=== PATIENT | female | born 1950 | race Caucasian/White ===

== ENCOUNTER 2021-07-26 13:42 | Outpatient (CLI) | payer MEDICARE, BC ==
[~2021-07-26 13:42] MED LIST: CYCL-1 PO
== END 2021-07-26 23:59 | disposition home or self-care (01) ==
LOC: CARD DIAG 13:42
PROVIDERS: ATTEND Nurse Practitioner
DX: I08.0 Rheumatic disorders of both mitral and aortic valves (principal); I10 Essential (primary) hypertension
CPT/HCPCS: 93306

== ENCOUNTER 2021-08-23 09:21 | Emergency (ER) | payer MEDICARE, BC ==
[~2021-08-23] VITALS: Ht 162.6 cm; Wt 70.5 kg
[2021-08-23 10:17] LABS: EOSINOPHILS # (AUTO) 0.6 X10'3 (0-0.9); EOSINOPHILS % (AUTO) 5.4 % (0-6); RED BLOOD COUNT 3.67 X10'6 (4.20-5.60); RED CELL DISTRIBUTION WIDTH 17.3 % (11.5-14.5)
[2021-08-23 10:18] LABS: BASOPHILS # (AUTO) 0.2 X10'3 (0-0.2); BASOPHILS % (AUTO) 1.4 % (0-1); HEMATOCRIT 22.6 % (35.0-45.0); LYMPHOCYTES # (AUTO) 2.6 X10'3 (1.1-4.8); LYMPHOCYTES % (AUTO) 21.8 % (21-51); MEAN CORPUSCULAR HEMOGLOBIN 18.4 PG (27.0-31.0); MEAN CORPUSCULAR VOLUME 61.4 FL (78-98); MEAN PLATELET VOLUME 6.5 FL (7.4-10.4); MONOCYTES # (AUTO) 0.8 X10'3 (0-0.9); MONOCYTES % (AUTO) 6.6 % (2-12); NEUTROPHILS # (AUTO) 7.8 X10'3 (1.8-7.7); NEUTROPHILS % (AUTO) 64.8 % (42-75); PLATELET COUNT 645 X10'3 (140-440)
[2021-08-23] MEDS ORDERED: proCHLORperazine 10 MG/2 ml inj IV ONE (10:20)
[2021-08-23] MEDS ORDERED: pantoprazole IV 80 MG in normal saline 100ml IV soln 100 ML IV ONE (10:20)
[2021-08-23] MEDS ORDERED: acetaminophen 325mg tablet PO ONE (10:20)
[2021-08-23 10:22] LABS: HEMOGLOBIN 6.8 g/dl (12.0-16.0)
[2021-08-23 10:44] LABS: ALANINE AMINOTRANSFERASE 18 U/L (12-78); ALBUMIN 3.3 G/DL (3.4-5.0); ALBUMIN/GLOBULIN RATIO 0.9 (1.1-1.5); ALKALINE PHOSPHATASE 74 IU/L (46-116); ANION GAP 8 (8-16); ASPARTATE AMINO TRANSFERASE 24 U/L (10-37); BILIRUBIN,TOTAL 0.3 MG/DL (0.1-1.0); BLOOD UREA NITROGEN 14 MG/DL (7-18); CALCIUM 8.9 MG/DL (8.5-10.1); CHLORIDE 102 MMOL/L (99-107); CREATININE 1.17 MG/DL (0.40-0.90); GLUCOSE 86 MG/DL (70-104); POTASSIUM 4.3 MMOL/L (3.5-5.1); SODIUM 134 MMOL/L (135-145); TOTAL CARBON DIOXIDE 23.6 MMOL/L (24-32); TOTAL PROTEIN 7.1 G/DL (6.4-8.2); eGFR 46 ML/MIN
[2021-08-23] MEDS: pantoprazole 40MG/NS 100ML BAG 100 ML IV SCH ×2 (10:49→11:08)
[2021-08-23 10:57] LABS: ANISOCYTOSIS 1+; HYPOCHROMASIA 2+; MICROCYTOSIS 2+; PLATELET ESTIMATE INCREASED
[2021-08-23 10:58] LABS: STOMATOCYTES 1+
[2021-08-23 10:59] LABS: SCHISTOCYTES FEW
[2021-08-23 12:31] VITALS: BP 178/72
[2021-08-23 12:46] VITALS: BP 154/66
[2021-08-23 12:53] VITALS: BP 154/66
[2021-08-23 13:29] VITALS: BP 166/78
[2021-08-23 14:48] VITALS: BP 175/85
== END 2021-08-23 14:51 | disposition home or self-care (01) ==
LOC: ER 09:21
DX: D50.9 Iron deficiency anemia, unspecified (principal); G43.909 Migraine, unspecified, not intractable, without status migrainosus; R53.83 Other fatigue; I10 Essential (primary) hypertension; G89.29 Other chronic pain; Z90.89 Acquired absence of other organs; Z90.710 Acquired absence of both cervix and uterus; Z98.890 Other specified postprocedural states; Z88.5 Allergy status to narcotic agent; Z88.8 Allergy status to other drugs, medicaments and biological substances; Z79.899 Other long term (current) drug therapy
CPT/HCPCS: 36415; 36430; 71045; 80053; 85008; 85025; 86885; 86900; 86901; 86920; 93005; 96374; 96375; 99285; C9113; J0780; P9016; 96376

== ENCOUNTER 2022-05-30 11:40 | Emergency (ER) | payer MEDICARE, BC ==
[~2022-05-30] VITALS: Ht 162.6 cm; Wt 61.4 kg
[2022-05-30 12:20] VITALS: BP 159/93
[2022-05-30] MEDS ORDERED: morphine 4 MG/ML inj SYRINge IM ONE (17:35)
[2022-05-30] MEDS ORDERED: HYDR-3965 PO (17:52)
[2022-05-30] MEDS ORDERED: HYDROcodone/acetaminophen 5mg/325mg tablet PO ONE (17:55)
== END 2022-05-30 18:29 | disposition home or self-care (01) ==
LOC: ER 11:40
DX: M43.16 Spondylolisthesis, lumbar region (principal); M54.50 Low back pain, unspecified; I10 Essential (primary) hypertension; G89.29 Other chronic pain; Z88.4 Allergy status to anesthetic agent; Z88.5 Allergy status to narcotic agent; Z98.890 Other specified postprocedural states; Z90.710 Acquired absence of both cervix and uterus
CPT/HCPCS: 72110; 73620; 96372; 99284; J2270

== ENCOUNTER 2022-11-04 09:34 | Emergency (ER) | payer BC, MEDICARE, OTHER ==
[~2022-11-04] VITALS: Ht 162.6 cm; Wt 61.4 kg
[2022-11-04] MEDS ORDERED: orphenadrine citrate 60mg/2ml inj. IM ONE (10:40)
[2022-11-04] MEDS ORDERED: HYDROcodone/acetaminophen 5mg/325mg tablet PO ONE ×2 (10:40→12:00)
[2022-11-04 12:02] VITALS: BP 189/93
[2022-11-04] MEDS ORDERED: ORPH100T2 PO (12:19)
[2022-11-04] MEDS ORDERED: HYDR-3965 PO (12:19)
[2022-11-04] MEDS ORDERED: LISI20TA28 PO (12:35)
--- NOTE | 2022-11-04 12:38 | NUR ---
Pt states that she has not been on her blood pressure medication for 2 years since her previous primary medical provider retired. Pt encouraged to establish with a new primary care provider.
== END 2022-11-04 12:56 | disposition home or self-care (01) ==
LOC: ER 09:34
DX: G89.29 Other chronic pain (principal); M54.31 Sciatica, right side; I10 Essential (primary) hypertension; M54.59 Other low back pain; Z90.49 Acquired absence of other specified parts of digestive tract; Z88.5 Allergy status to narcotic agent; Z79.899 Other long term (current) drug therapy; Z79.1 Long term (current) use of non-steroidal anti-inflammatories (NSAID); W19.XXXA Unspecified fall, initial encounter; Y93.89 Activity, other specified; Y92.89 Other specified places as the place of occurrence of the external cause; Y99.8 Other external cause status
CPT/HCPCS: 72100; 96372; 99284; J2360

== ENCOUNTER 2024-02-18 08:52 | Emergency (ER) | payer MEDICARE, BC ==
[~2024-02-18] VITALS: Ht 162.6 cm; Wt 66.0 kg
[~2024-02-18 08:52] MED LIST changes: +ORPH100T4 PO
[2024-02-18 08:54] VITALS: TEMP 97.8
[2024-02-18] MEDS: dexamethasone sod phosphate 10mg/ml inj IM STA (11:36)
[2024-02-18] MEDS: cyclobenzaprine 10mg tablet PO ONE (11:36)
[2024-02-18] MEDS ORDERED: ketorolac trometh inj. 60 MG/2 ML VIAL IM ONE (12:35)
[2024-02-18] MEDS: ketorolac trometh. 30mg/ml inj. IM ONE (12:48)
[2024-02-18 13:19] VITALS: BP 198/77; PULSE 92; RESP 16; O2SAT 100
[2024-02-18] MEDS ORDERED: METH-798 PO (13:49)
[2024-02-18] MEDS ORDERED: HYDR-3965 PO (13:49)
[2024-02-18] MEDS ORDERED: PRED20TA PO (13:49)
== END 2024-02-18 14:17 | disposition home or self-care (01) ==
LOC: ER 08:52
DX: M54.50 Low back pain, unspecified (principal); Z88.8 Allergy status to other drugs, medicaments and biological substances; I10 Essential (primary) hypertension; G89.29 Other chronic pain; D64.9 Anemia, unspecified; Z90.49 Acquired absence of other specified parts of digestive tract; Z90.710 Acquired absence of both cervix and uterus
CPT/HCPCS: 72131; 96372; 99285; J1100; J1885

== ENCOUNTER 2024-07-02 07:25 | Emergency (ER) | payer MEDICARE, BC ==
[~2024-07-02] VITALS: Ht 162.6 cm; Wt 61.4 kg
[~2024-07-02 07:25] MED LIST changes: +ATOR40TA72 PO; -CYCL-1 PO; +GABA-530 PO; +LEVO125T8 PO; +LOSA100T58 PO; +METO-395 PO; -ORPH100T4 PO; +OXYC1TAB17 PO
[2024-07-02 07:27] VITALS: BP 167/72; PULSE 85; O2SAT 98
[2024-07-02 09:48] LABS: BILIRUBIN,URINE NEGATIVE (Neg); CLARITY,URINE CLOUDY (Clear); COLOR,URINE YELLOW (Yellow); GLUCOSE, URINE NEGATIVE (Neg); KETONES,URINE NEGATIVE (Neg); LEUKOCYTE ESTERASE ,URINE MODERATE (Neg); NITRITES, URINE POSITIVE (Neg); OCCULT BLOOD,URINE TRACE-INTACT (Neg); PH,URINE 6.5 (4.8-8.0); PROTEIN,URINE NEGATIVE (Neg); UROBILINOGEN,URINE 0.2 E.U/dL (0.2-1.0)
[2024-07-02 10:00] LABS: UA COLLECTION TYPE CLN CATCH MIDSTREAM
[2024-07-02 10:01] LABS: BACTERIA,URINE 2+ /HPF (Neg); SQUAMOUS EPITHELIAL CELL,UR FEW /LPF (FEW); WBC CLUMPS,URINE MANY /HPF (NEGATIVE); WBC,URINE TNTC /HPF (0-4)
[2024-07-02] MEDS ORDERED: LEVO-65 PO (10:19)
[2024-07-02] MEDS ORDERED: HYDR-3965 PO (10:19)
[2024-07-02] MEDS ORDERED: PHEN-716 PO (10:19)
[2024-07-02 10:33] VITALS: RESP 16
[2024-07-02] MEDS: phenazopyridine 100mg tablet PO ONE (10:33)
[2024-07-02] MEDS: HYDROcodone/acetaminophen 5mg/325mg tablet PO ONE (10:33)
[2024-07-02] MEDS: CefTRIAXone 1000mg IM Kit (w/lidocaine diluent) IM ONE (10:33)
[2024-07-02 10:44] VITALS: TEMP 98.5
== END 2024-07-02 10:49 | disposition home or self-care (01) ==
LOC: ER 07:25
DX: N39.0 Urinary tract infection, site not specified (principal); M54.50 Low back pain, unspecified; I10 Essential (primary) hypertension; D64.9 Anemia, unspecified; G89.29 Other chronic pain; M54.9 Dorsalgia, unspecified; Z88.0 Allergy status to penicillin; Z88.5 Allergy status to narcotic agent; Z88.8 Allergy status to other drugs, medicaments and biological substances; Z79.899 Other long term (current) drug therapy; Z90.49 Acquired absence of other specified parts of digestive tract; Z90.710 Acquired absence of both cervix and uterus
CPT/HCPCS: 81001; 87077; 87088; 87186; 96372; 99283; J0696

== ENCOUNTER 2024-11-24 09:30 | Emergency (ER) | payer MEDICARE, BC ==
[~2024-11-24] VITALS: Ht 162.6 cm; Wt 67.2 kg
[~2024-11-24 09:30] MED LIST changes: +PHEN-716 PO
[2024-11-24 10:43] LABS: BASOPHILS # (AUTO) 0.1 X10'3 (0-0.2); EOSINOPHILS # (AUTO) 0.3 X10'3 (0-0.9); EOSINOPHILS % (AUTO) 2.9 % (0-6); HEMATOCRIT 28.5 % (35.0-45.0); HEMOGLOBIN 8.9 g/dl (12.0-16.0); LYMPHOCYTES # (AUTO) 1.9 X10'3 (1.1-4.8); LYMPHOCYTES % (AUTO) 16.7 % (21-51); MEAN CORPUSCULAR HEMOGLOBIN 21.4 PG (27.0-31.0); MEAN CORPUSCULAR HGB CONC 31.2 g/dL (33.0-36.5); MEAN CORPUSCULAR VOLUME 68.5 FL (78-98); MEAN PLATELET VOLUME 6.3 FL (7.4-10.4); MONOCYTES % (AUTO) 8.6 % (2-12); NEUTROPHILS % (AUTO) 70.8 % (42-75); PLATELET COUNT 609 X10'3 (140-440); RED BLOOD COUNT 4.15 X10'6 (4.20-5.60); RED CELL DISTRIBUTION WIDTH 16.8 % (11.5-14.5); WHITE BLOOD COUNT 11.3 X10'3 (4.5-11.0)
[2024-11-24 10:51] LABS: ALANINE AMINOTRANSFERASE 17 U/L (12-78); ALBUMIN 3.8 G/DL (3.4-5.0); ALBUMIN/GLOBULIN RATIO 1.3 (1.1-1.5); ALKALINE PHOSPHATASE 113 IU/L (46-116); ANION GAP 6 (8-16); ASPARTATE AMINO TRANSFERASE 12 U/L (10-37); BILIRUBIN,TOTAL 1.3 MG/DL (0.1-1.0); BLOOD UREA NITROGEN 14 MG/DL (7-18); BUN/CREATININE RATIO 17.9 (10.0-20.0); CALCIUM 9.3 MG/DL (8.5-10.1); CHLORIDE 90 MMOL/L (99-107); CREATININE 0.78 MG/DL (0.40-0.90); GLUCOSE 120 MG/DL (70-104); POTASSIUM 4.3 MMOL/L (3.5-5.1); SODIUM 122 MMOL/L (135-145); TOTAL CARBON DIOXIDE 26.4 MMOL/L (24-32); TOTAL PROTEIN 6.7 G/DL (6.4-8.2); eCRCL 55 ML/MIN; eGFR 72 ML/MIN
[2024-11-24 11:32] LABS: ACANTHOCYTES FEW; ANISOCYTOSIS 1+; ELLIPTOCYTES 1+; HYPOCHROMASIA 1+; MICROCYTOSIS 2+; PLATELET ESTIMATE INCREASED
[2024-11-24] MEDS: oxyCODONE IR 5mg (immed. release) tablet PO STA (11:40)
[2024-11-24] MEDS: ondansetron 4mg rapidly disintigrating tab PO ONE (11:45)
[2024-11-24 11:52] LABS: BILIRUBIN,URINE NEGATIVE (Neg); CLARITY,URINE SLIGHTLY CLOUDY (Clear); COLOR,URINE YELLOW (Yellow); GLUCOSE, URINE NEGATIVE (Neg); KETONES,URINE NEGATIVE (Neg); LEUKOCYTE ESTERASE ,URINE LARGE (Neg); NITRITES, URINE NEGATIVE (Neg); OCCULT BLOOD,URINE TRACE-INTACT (Neg); PROTEIN,URINE NEGATIVE (Neg); UROBILINOGEN,URINE 0.2 E.U/dL (0.2-1.0)
[2024-11-24 12:04] LABS: UA COLLECTION TYPE CLN CATCH MIDSTREAM
[2024-11-24 12:05] LABS: WBC,URINE TNTC /HPF (0-4)
[2024-11-24 12:06] LABS: AMORPHOUS URATES 1+; BACTERIA,URINE 2+ /HPF (Neg); MUCUS STRANDS NONE SEEN /LPF (Neg); RBC,URINE 0-2 /HPF (0-2); SQUAMOUS EPITHELIAL CELL,UR NONE SEEN /LPF (FEW); TRANSITIONAL EPI CELLS,URINE FEW /HPF
[2024-11-24] MEDS ORDERED: OMEP40CA21 PO (12:34)
[2024-11-24] MEDS ORDERED: HYDR-3972 PO (12:34)
[2024-11-24] MEDS ORDERED: SUCR1TAB PO (12:34)
[2024-11-24 12:45] VITALS: BP 158/86; PULSE 90; RESP 18; TEMP 97.8; O2SAT 97
[2024-11-24] MEDS ORDERED: NITR100C6 PO (12:53)
== END 2024-11-24 12:46 | disposition home or self-care (01) ==
LOC: ER 09:30
DX: M54.50 Low back pain, unspecified (principal); I10 Essential (primary) hypertension; G89.29 Other chronic pain; N30.00 Acute cystitis without hematuria; Z88.0 Allergy status to penicillin; Z88.5 Allergy status to narcotic agent; Z88.8 Allergy status to other drugs, medicaments and biological substances; Z90.49 Acquired absence of other specified parts of digestive tract; Z90.710 Acquired absence of both cervix and uterus
CPT/HCPCS: 36415; 72100; 80053; 81001; 85008; 85025; 87088; 99284